=== PATIENT | female | born 1970 | race Caucasian/White ===

== ENCOUNTER 2018-12-01 17:54 | Emergency (ER) | payer MEDICAID ==
[~2018-12-01] VITALS: Ht 160 cm; Wt 72.0 kg
[~2018-12-01 17:54] MED LIST: METH-360 PO; NAPR-56 PO; NO HOME MEDS; VAL5T PO
[2018-12-01 18:28] LABS: BASOPHILS # (AUTO) 0.1 X10'3 (0-0.2); EOSINOPHILS # (AUTO) 0.2 X10'3 (0-0.9); EOSINOPHILS % (AUTO) 3.6 % (0-6); HEMATOCRIT 40.9 % (35.0-45.0); HEMOGLOBIN 13.5 g/dl (12.0-16.0); LYMPHOCYTES # (AUTO) 2.5 X10'3 (1.1-4.8); LYMPHOCYTES % (AUTO) 36.1 % (21-51); MEAN CORPUSCULAR HEMOGLOBIN 30.9 PG (27.0-31.0); MEAN CORPUSCULAR HGB CONC 33.1 g/dL (33.0-36.5); MEAN CORPUSCULAR VOLUME 93.1 FL (78-98); MEAN PLATELET VOLUME 9.7 FL (7.4-10.4); MONOCYTES # (AUTO) 0.5 X10'3 (0-0.9); MONOCYTES % (AUTO) 7.7 % (2-12); NEUTROPHILS # (AUTO) 3.5 X10'3 (1.8-7.7); NEUTROPHILS % (AUTO) 51.6 % (42-75); PLATELET COUNT 240 X10'3 (140-440); RED BLOOD COUNT 4.39 X10'6 (4.20-5.60); RED CELL DISTRIBUTION WIDTH 13.1 % (11.5-14.5); WHITE BLOOD COUNT 6.8 X10'3 (4.5-11.0)
[2018-12-01 18:47] LABS: ALANINE AMINOTRANSFERASE 29 U/L (12-78); ALBUMIN/GLOBULIN RATIO 1.1 (1.1-1.5); ALKALINE PHOSPHATASE 73 IU/L (46-116); ANION GAP 9 (8-16); ASPARTATE AMINO TRANSFERASE 18 U/L (10-37); BILIRUBIN,TOTAL 0.5 MG/DL (0.1-1.0); BLOOD UREA NITROGEN 13 MG/DL (7-18); BUN/CREATININE RATIO 16.5 (6.6-38.0); CALCIUM 9.2 MG/DL (8.5-10.1); CHLORIDE 109 MMOL/L (99-107); CREATININE 0.79 MG/DL (0.40-0.90); GLUCOSE 94 MG/DL (70-104); POTASSIUM 4.4 MMOL/L (3.5-5.1); SODIUM 144 MMOL/L (135-145); TOTAL CARBON DIOXIDE 25.6 MMOL/L (24-32); TOTAL PROTEIN 7.8 G/DL (6.4-8.2); eGFR 78 ML/MIN
[2018-12-01 20:09] VITALS: BP 126/74
[2018-12-01] MEDS ORDERED: HYDR-4353 PO (20:17)
[2018-12-01] MEDS ORDERED: HYDROcodone/acetaminophen 10/325mg tab PO ONE (20:20)
[2018-12-01] MEDS ORDERED: ketorolac trometh. 30mg/ml inj. IV ONE (20:20)
--- NOTE | 2018-12-01 20:20 | NUR ---
PT IS POLITE AND COOPERATIVE . AWAITING ER PROVIDER. STATES SHE HAS HAD UTI IN PAST AND THAT THIS DOES NOT FEEL LIKE ONE, FEELS LIKE A KIDNEY INFECTION. STATES SHE HAD ONE EPISODE OF URINARY INCONTINENCE EARLIER TODAY AND HAS NOT HAD THIS HAPPEN SINCE BUT IS HAVING URGENCY.
== END 2018-12-01 20:54 | disposition home or self-care (01) ==
LOC: ER 17:54
DX: S29.012A Strain of muscle and tendon of back wall of thorax, initial encounter (principal); Z87.891 Personal history of nicotine dependence; Z98.890 Other specified postprocedural states; Z88.2 Allergy status to sulfonamides; Z87.442 Personal history of urinary calculi; X50.1XXA Overexertion from prolonged static or awkward postures, initial encounter; Y93.89 Activity, other specified; Y92.89 Other specified places as the place of occurrence of the external cause; Y99.9 Unspecified external cause status
CPT/HCPCS: 36415; 80053; 85025; 96374; 99283; J1885

== ENCOUNTER 2023-10-16 14:19 | Emergency (ER) | payer MEDICAID ==
[~2023-10-16] VITALS: Ht 162.6 cm; Wt 75.0 kg
[~2023-10-16 14:19] MED LIST changes: +DIAZ5TAB22 PO; -VAL5T PO
[2023-10-16 16:18] VITALS: BP 124/70; PULSE 88; RESP 18; TEMP 98.9; O2SAT 99
== END 2023-10-16 16:19 | disposition home or self-care (01) ==
LOC: ER 14:19
DX: J11.1 Influenza due to unidentified influenza virus with other respiratory manifestations (principal); Z20.822 Contact with and (suspected) exposure to COVID-19; B34.9 Viral infection, unspecified; F41.9 Anxiety disorder, unspecified; Z88.2 Allergy status to sulfonamides; Z79.899 Other long term (current) drug therapy; Z98.890 Other specified postprocedural states
CPT/HCPCS: 36415; 87811; 99283